=== PATIENT | male | born 1955 | race Caucasian/White ===

== ENCOUNTER 2021-04-13 10:51 | Emergency (ER) | payer OTHER, MEDICARE, MEDICAID ==
[~2021-04-13] VITALS: Ht 188 cm; Wt 107.4 kg
[~2021-04-13 10:51] MED LIST: APIX5TAB3 PO; FINA5TAB3 PO; FLO0.4C PO; FURO-150 PO; LACT1CAP75 PO; LOSA25TA41 PO; METO-395 PO; NITR0.4T51 SL; POTA10TA36 PO
[2021-04-13 12:01] LABS: BASOPHILS # (AUTO) 0.1 X10'3 (0-0.2); BASOPHILS % (AUTO) 0.6 % (0-1); EOSINOPHILS # (AUTO) 0.1 X10'3 (0-0.9); EOSINOPHILS % (AUTO) 0.9 % (0-6); HEMOGLOBIN 12.3 g/dl (14.0-17.9); LYMPHOCYTES # (AUTO) 1.1 X10'3 (1.1-4.8); LYMPHOCYTES % (AUTO) 13.2 % (21-51); MEAN CORPUSCULAR HEMOGLOBIN 27.5 PG (27.0-31.0); MEAN CORPUSCULAR HGB CONC 32.3 g/dL (33.0-36.5); MEAN CORPUSCULAR VOLUME 84.9 FL (78-98); MONOCYTES # (AUTO) 1.2 X10'3 (0-0.9); MONOCYTES % (AUTO) 14.2 % (2-12); NEUTROPHILS % (AUTO) 71.1 % (42-75); PLATELET COUNT 208 X10'3 (140-440); RED BLOOD COUNT 4.47 X10'6 (4.70-6.10); RED CELL DISTRIBUTION WIDTH 17.3 % (11.5-14.5); WHITE BLOOD COUNT 8.5 X10'3 (4.5-11.0)
[2021-04-13 13:02] LABS: ALANINE AMINOTRANSFERASE 49 U/L (12-78); ALBUMIN 3.6 G/DL (3.4-5.0); ALBUMIN/GLOBULIN RATIO 1.1 (1.1-1.5); ALKALINE PHOSPHATASE 68 IU/L (46-116); ANION GAP 9 (8-16); ASPARTATE AMINO TRANSFERASE 23 U/L (10-37); BLOOD UREA NITROGEN 27 MG/DL (7-18); BUN/CREATININE RATIO 14.5 (5.4-32.0); CALCIUM 9.6 MG/DL (8.5-10.1); CHLORIDE 105 MMOL/L (99-107); CREATININE 1.86 MG/DL (0.60-1.10); GLUCOSE 99 MG/DL (70-104); POTASSIUM 3.6 MMOL/L (3.5-5.1); SODIUM 139 MMOL/L (135-145); TOTAL CARBON DIOXIDE 24.7 MMOL/L (24-32); TOTAL PROTEIN 6.9 G/DL (6.4-8.2); eGFR 37 ML/MIN
[2021-04-13] MEDS ORDERED: diltiazem 5mg/ml 5ml inj. IV ONE (13:25)
[2021-04-13 15:57] VITALS: BP 129/97
== END 2021-04-13 15:59 | disposition home or self-care (01) ==
LOC: ER 10:52
DX: I50.9 Heart failure, unspecified (principal); I11.0 Hypertensive heart disease with heart failure; I48.91 Unspecified atrial fibrillation; R00.0 Tachycardia, unspecified; R06.02 Shortness of breath; R53.1 Weakness; R60.0 Localized edema; G89.29 Other chronic pain; Z88.5 Allergy status to narcotic agent; Z88.8 Allergy status to other drugs, medicaments and biological substances; Z79.899 Other long term (current) drug therapy
CPT/HCPCS: 36415; 71045; 80053; 83880; 84484; 85025; 93005; 96374; 99285; J3490

== ENCOUNTER 2021-04-17 03:41 | Emergency (ER) | payer OTHER, MEDICARE, MEDICAID ==
[~2021-04-17] VITALS: Ht 188 cm; Wt 104.5 kg
[2021-04-17 04:41] LABS: BASOPHILS # (AUTO) 0.1 X10'3 (0-0.2); BASOPHILS % (AUTO) 0.7 % (0-1); EOSINOPHILS % (AUTO) 0.4 % (0-6); HEMATOCRIT 35.6 % (42.0-52.0); HEMOGLOBIN 11.4 g/dl (14.0-17.9); LYMPHOCYTES % (AUTO) 11.1 % (21-51); MEAN CORPUSCULAR HEMOGLOBIN 27.6 PG (27.0-31.0); MEAN CORPUSCULAR HGB CONC 32.1 g/dL (33.0-36.5); MEAN PLATELET VOLUME 9.5 FL (7.4-10.4); MONOCYTES % (AUTO) 11.3 % (2-12); NEUTROPHILS # (AUTO) 6.6 X10'3 (1.8-7.7); NEUTROPHILS % (AUTO) 76.5 % (42-75); PLATELET COUNT 194 X10'3 (140-440); RED BLOOD COUNT 4.14 X10'6 (4.70-6.10); RED CELL DISTRIBUTION WIDTH 17.4 % (11.5-14.5); WHITE BLOOD COUNT 8.7 X10'3 (4.5-11.0)
[2021-04-17 04:50] LABS: ALANINE AMINOTRANSFERASE 38 U/L (12-78); ALBUMIN 3.3 G/DL (3.4-5.0); ALBUMIN/GLOBULIN RATIO 1.1 (1.1-1.5); ALKALINE PHOSPHATASE 83 IU/L (46-116); ANION GAP 12 (8-16); ASPARTATE AMINO TRANSFERASE 25 U/L (10-37); BLOOD UREA NITROGEN 28 MG/DL (7-18); BUN/CREATININE RATIO 14.1 (5.4-32.0); CALCIUM 9.6 MG/DL (8.5-10.1); CHLORIDE 105 MMOL/L (99-107); CREATININE 1.99 MG/DL (0.60-1.10); GLUCOSE 107 MG/DL (70-104); POTASSIUM 3.3 MMOL/L (3.5-5.1); SODIUM 140 MMOL/L (135-145); TOTAL CARBON DIOXIDE 22.8 MMOL/L (24-32); TOTAL PROTEIN 6.4 G/DL (6.4-8.2); eGFR 34 ML/MIN
[2021-04-17 05:35] VITALS: BP 121/95
== END 2021-04-17 05:37 | disposition home or self-care (01) ==
LOC: ER 03:42
DX: R06.02 Shortness of breath (principal); F41.9 Anxiety disorder, unspecified; I11.0 Hypertensive heart disease with heart failure; I50.9 Heart failure, unspecified; I48.91 Unspecified atrial fibrillation; I25.2 Old myocardial infarction; G89.29 Other chronic pain; Z88.6 Allergy status to analgesic agent; Z88.8 Allergy status to other drugs, medicaments and biological substances; Z79.899 Other long term (current) drug therapy
CPT/HCPCS: 36415; 71045; 80053; 83735; 83880; 85025; 93005; 99285

== ENCOUNTER 2021-04-19 03:52 | Inpatient (IN) | payer OTHER, MEDICARE, MEDICAID ==
[~2021-04-19] VITALS: Ht 188 cm; Wt 100.0 kg
[2021-04-19 04:34] LABS: BASOPHILS # (AUTO) 0.1 X10'3 (0-0.2); BASOPHILS % (AUTO) 0.7 % (0-1); EOSINOPHILS # (AUTO) 0.1 X10'3 (0-0.9); EOSINOPHILS % (AUTO) 0.8 % (0-6); HEMATOCRIT 37.3 % (42.0-52.0); HEMOGLOBIN 12.2 g/dl (14.0-17.9); LYMPHOCYTES # (AUTO) 1.1 X10'3 (1.1-4.8); LYMPHOCYTES % (AUTO) 13.2 % (21-51); MEAN CORPUSCULAR HGB CONC 32.6 g/dL (33.0-36.5); MEAN CORPUSCULAR VOLUME 85.8 FL (78-98); MEAN PLATELET VOLUME 9.6 FL (7.4-10.4); MONOCYTES # (AUTO) 0.9 X10'3 (0-0.9); MONOCYTES % (AUTO) 11.4 % (2-12); NEUTROPHILS % (AUTO) 73.9 % (42-75); PLATELET COUNT 219 X10'3 (140-440); RED BLOOD COUNT 4.35 X10'6 (4.70-6.10); RED CELL DISTRIBUTION WIDTH 17.2 % (11.5-14.5); WHITE BLOOD COUNT 8.2 X10'3 (4.5-11.0)
[2021-04-19 04:52] LABS: ALANINE AMINOTRANSFERASE 45 U/L (12-78); ALBUMIN 3.4 G/DL (3.4-5.0); ALKALINE PHOSPHATASE 79 IU/L (46-116); ANION GAP 13 (8-16); ASPARTATE AMINO TRANSFERASE 25 U/L (10-37); BILIRUBIN,TOTAL 1.4 MG/DL (0.1-1.0); BLOOD UREA NITROGEN 33 MG/DL (7-18); BUN/CREATININE RATIO 15.6 (5.4-32.0); CALCIUM 9.8 MG/DL (8.5-10.1); CHLORIDE 104 MMOL/L (99-107); CREATININE 2.11 MG/DL (0.60-1.10); GLUCOSE 98 MG/DL (70-104); POTASSIUM 3.5 MMOL/L (3.5-5.1); SODIUM 140 MMOL/L (135-145); TOTAL CARBON DIOXIDE 22.6 MMOL/L (24-32); TOTAL PROTEIN 6.7 G/DL (6.4-8.2); eGFR 32 ML/MIN
[2021-04-19 04:58] LABS: LIPASE 111 U/L (73-393)
[2021-04-19] MEDS ORDERED: diltiazem 5mg/ml 5ml inj. IV ONE ×2 (06:30→07:00)
[2021-04-19] MEDS ORDERED: amiodarone/D5 360MG/200ML BAG 200 ML IV ONE (07:55)
[2021-04-19] MEDS ORDERED: magnesium 4gm in 100ml NS 100 ML IV PRN (08:55)
[2021-04-19] MEDS ORDERED: magnesium Cl slow-release 64mg tablet PO PRN (08:55)
[2021-04-19] MEDS ORDERED: ondansetron/PF 4mg/2ml inj IV PRN (08:55)
[2021-04-19] MEDS ORDERED: mag hydrox/Alum hydrox/simeth 30ml oral suspension PO PRN (08:55)
[2021-04-19] MEDS ORDERED: magnesium hydroxide 30ml (MOM) UD suspension PO PRN (08:55)
[2021-04-19] MEDS ORDERED: bisacodyl 10mg suppository rectal RC PRN (08:55)
[2021-04-19] MEDS ORDERED: magnesium 2GM in 50ml NS 50 ML IV PRN (08:55)
[2021-04-19] MEDS ORDERED: acetaminophen 650mg rectal suppository RC PRN (08:55)
[2021-04-19] MEDS ORDERED: potassium Cl 40MEQ/1/2NS 520ml 520 ML IV PRN ×2 (08:55)
[2021-04-19] MEDS ORDERED: acetaminophen 325mg tablet PO PRN ×2 (08:55)
[2021-04-19] MEDS ORDERED: normal saline 1000ml 1,000 ML IV SCH (08:55)
[2021-04-19] MEDS ORDERED: potassium Cl 20 mEq SR tablet PO PRN ×2 (08:55)
[2021-04-19] MEDS ORDERED: diphenhydrAMINE 25mg capsule PO PRN (08:55)
[2021-04-19 12:35] VITALS: BP 140/74
[2021-04-19 12:44] LABS: CLARITY,URINE CLOUDY (Clear); COLOR,URINE YELLOW (Yellow); GLUCOSE, URINE NEGATIVE (Neg); KETONES,URINE TRACE mg/dl (Neg); LEUKOCYTE ESTERASE ,URINE LARGE (Neg); NITRITES, URINE POSITIVE (Neg); OCCULT BLOOD,URINE SMALL (Neg); PROTEIN,URINE NEGATIVE (Neg); UROBILINOGEN,URINE 0.2 E.U/dL (0.2-1.0)
[2021-04-19 12:54] LABS: UA COLLECTION TYPE NON-SPECIFIED; WBC,URINE 50-100 /HPF (0-4)
[2021-04-19 12:55] LABS: BACTERIA,URINE 4+ /HPF (Neg); RBC,URINE 0-2 /HPF (0-2); SQUAMOUS EPITHELIAL CELL,UR FEW /LPF (FEW); WBC CLUMPS,URINE FEW /HPF (NEGATIVE)
--- NOTE | 2021-04-19 13:00 | NUR ---
Patient in room PCU 3020. I have received report from TIMOTEO ENGLE and had the opportunity to ask questions and assume patient care.
[2021-04-19 15:00] VITALS: BP 129/99
[2021-04-19] MEDS ORDERED: METO-395 PO (15:26)
[2021-04-19] MEDS ORDERED: FURO-150 PO (15:26)
[2021-04-19] MEDS ORDERED: APIX5TAB3 PO (15:26)
[2021-04-19] MEDS ORDERED: NITR0.4T48 SL (15:26)
[2021-04-19] MEDS ORDERED: LOSA25TA96 PO (15:26)
[2021-04-19] MEDS ORDERED: POTA10CA44 PO (15:26)
[2021-04-19] MEDS ORDERED: nitroGLYCERIN 0.4mg SUBLingual tab SL PRN (16:50)
[2021-04-19] MEDS ORDERED: FINA5TAB3 PO (16:57)
[2021-04-19] MEDS ORDERED: FLO0.4C PO (16:57)
[2021-04-19 18:00] VITALS: BP 129/106
--- NOTE | 2021-04-19 18:00 | NUR ---
Patient in room PCU 3020. I have received report from rose and had the opportunity to ask questions and assume patient care.
--- NOTE | 2021-04-19 18:07 | NUR ---
Problems reprioritized. Patient report given, questions answered & plan of care reviewed with RA ENGLE.
--- NOTE | 2021-04-19 18:51 | NUR ---
Problems reprioritized. Patient report given, questions answered & plan of care reviewed with RA ENGLE.
--- NOTE | 2021-04-19 19:30 | NUR ---
Dr Balderrama asked about pt condition and ordered amiodarone per protocol.
[2021-04-19] MEDS: K and/or MAG REPLACEMENT MC SCH (20:00)
[2021-04-19] MEDS ORDERED: amiodarone 150mg/dext, iso-os 100 ML IV ONE (20:25)
[2021-04-19] MEDS: furosemide 20MG tablet PO SCH (21:46)
[2021-04-19] MEDS: tamsulosin 0.4mg capsule PO SCH (21:46)
[2021-04-19] MEDS: apixaban 5mg tablet PO SCH (21:46)
[2021-04-19] MEDS: amiodarone/D5 360MG/200ML BAG 200 ML IV SCH (21:56)
[2021-04-19 22:00] VITALS: BP 127/89
[2021-04-20] MEDS: ondansetron 4mg rapidly disintigrating tab PO PRN ×2 (00:19→10:05)
[2021-04-20 02:00] VITALS: BP 117/91
[2021-04-20] MEDS: amiodarone/D5 360MG/200ML BAG 200 ML IV SCH ×2 (04:19→08:33)
[2021-04-20 06:00] VITALS: BP 109/86
--- NOTE | 2021-04-20 06:17 | NUR ---
Patient in room PCU 3020. I have received report from ONIEL Harman and had the opportunity to ask questions and assume patient care.
--- NOTE | 2021-04-20 06:17 | NUR ---
Problems reprioritized. Patient report given, questions answered & plan of care reviewed with CÉSAR.
[2021-04-20 06:21] LABS: ALANINE AMINOTRANSFERASE 37 U/L (12-78); ALKALINE PHOSPHATASE 69 IU/L (46-116); ANION GAP 7 (8-16); ASPARTATE AMINO TRANSFERASE 18 U/L (10-37); BILIRUBIN,TOTAL 0.8 MG/DL (0.1-1.0); BLOOD UREA NITROGEN 30 MG/DL (7-18); BUN/CREATININE RATIO 14.6 (5.4-32.0); CALCIUM 9.5 MG/DL (8.5-10.1); CHLORIDE 105 MMOL/L (99-107); CREATININE 2.06 MG/DL (0.60-1.10); GLUCOSE 102 MG/DL (70-104); POTASSIUM 3.5 MMOL/L (3.5-5.1); SODIUM 139 MMOL/L (135-145); TOTAL CARBON DIOXIDE 26.8 MMOL/L (24-32); eGFR 32 ML/MIN
[2021-04-20 06:35] LABS: BASOPHILS % (AUTO) 0.6 % (0-1); EOSINOPHILS # (AUTO) 0.1 X10'3 (0-0.9); EOSINOPHILS % (AUTO) 1.2 % (0-6); HEMOGLOBIN 11.3 g/dl (14.0-17.9); LYMPHOCYTES # (AUTO) 1.3 X10'3 (1.1-4.8); LYMPHOCYTES % (AUTO) 16.4 % (21-51); MEAN CORPUSCULAR HEMOGLOBIN 27.6 PG (27.0-31.0); MEAN CORPUSCULAR HGB CONC 32.1 g/dL (33.0-36.5); MEAN PLATELET VOLUME 9.7 FL (7.4-10.4); MONOCYTES % (AUTO) 12.7 % (2-12); NEUTROPHILS # (AUTO) 5.3 X10'3 (1.8-7.7); NEUTROPHILS % (AUTO) 69.1 % (42-75); PLATELET COUNT 215 X10'3 (140-440); RED BLOOD COUNT 4.07 X10'6 (4.70-6.10); RED CELL DISTRIBUTION WIDTH 17.4 % (11.5-14.5); WHITE BLOOD COUNT 7.7 X10'3 (4.5-11.0)
[2021-04-20] MEDS ORDERED: losartan 25mg tablet PO SCH (08:00)
[2021-04-20] MEDS ORDERED: metoprolol succinate 25mg (24-HOUR) SR. Tablet PO SCH (08:00)
[2021-04-20] MEDS: K and/or MAG REPLACEMENT MC SCH (08:00)
[2021-04-20] MEDS ORDERED: finasteride 5mg tablet PO SCH (08:00)
[2021-04-20] MEDS: furosemide 20MG tablet PO SCH (08:21)
[2021-04-20 08:22] VITALS: BP_SYST 109
[2021-04-20] MEDS: apixaban 5mg tablet PO SCH (08:22)
[2021-04-20] MEDS: tamsulosin 0.4mg capsule PO SCH (08:22)
[2021-04-20] MEDS ORDERED: AMIO200T67 PO (10:05)
[2021-04-20] MEDS ORDERED: METO-395 PO (10:05)
--- NOTE | 2021-04-20 11:01 | NUR ---
Patient stable for discharge per MD orders. PIV discontinued intact. Telemetry monitoring equipment removed and returned to telemetry office. All belongings collected and sent with patient. Life Vest and accessories, including power pack, sent with patient. All discharge instructions reviewed with patient, who was given the opportunity to ask questions. All questions answered with patient expressing good understanding of discharge requirements. 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
[2021-04-20] MEDS ORDERED: amiodarone 200mg tablet PO SCH (20:00)
[2021-04-21] MEDS ORDERED: metoprolol succinate 25mg (24-HOUR) SR. Tablet PO SCH (08:00)
[2021-04-22] MEDS ORDERED: CEPH250T PO (15:14)
== END 2021-04-20 10:53 | disposition home health service (06) | DRG 309 ==
LOC: ER 03:53 → ED HOLD 08:53 → PCU 3S 12:23
PROVIDERS: ADMIT Family Medicine; ATTEND Family Medicine
DX: I48.0 Paroxysmal atrial fibrillation (principal); N17.9 Acute kidney failure, unspecified; I13.0 Hypertensive heart and chronic kidney disease with heart failure and stage 1 through stage 4 chronic kidney disease, or unspecified chronic kidney disease; I50.20 Unspecified systolic (congestive) heart failure; I42.9 Cardiomyopathy, unspecified; F12.90 Cannabis use, unspecified, uncomplicated; F32.9 Major depressive disorder, single episode, unspecified; F41.1 Generalized anxiety disorder; F43.10 Post-traumatic stress disorder, unspecified; G47.00 Insomnia, unspecified; G89.29 Other chronic pain; M54.9 Dorsalgia, unspecified; N18.9 Chronic kidney disease, unspecified; N40.0 Benign prostatic hyperplasia without lower urinary tract symptoms; Z79.01 Long term (current) use of anticoagulants; Z79.899 Other long term (current) drug therapy; Z80.8 Family history of malignant neoplasm of other organs or systems; I25.2 Old myocardial infarction; Z86.2 Personal history of diseases of the blood and blood-forming organs and certain disorders involving the immune mechanism; Z87.891 Personal history of nicotine dependence; Z88.5 Allergy status to narcotic agent; Z88.8 Allergy status to other drugs, medicaments and biological substances
CPT/HCPCS: 36415; 71045; 80053; 81001; 83690; 83735; 83880; 84100; 84484; 85025; 87077; 87081; 87088; 87186; 93005; 96374; 96375; 96376; 99285; G0378; J3490; J7030

== ENCOUNTER 2021-04-28 08:51 | Emergency (ER) | payer OTHER, MEDICARE, MEDICAID ==
[~2021-04-28] VITALS: Ht 188 cm; Wt 92.7 kg
[~2021-04-28 08:51] MED LIST changes: +AMIO200T67 PO; +CEPH250T PO; -LACT1CAP75 PO; -LOSA25TA41 PO; +LOSA25TA96 PO; +NITR0.4T48 SL; -NITR0.4T51 SL; +POTA10CA44 PO; -POTA10TA36 PO
[2021-04-28 09:57] LABS: BASOPHILS % (AUTO) 0.5 % (0-1); EOSINOPHILS # (AUTO) 0.1 X10'3 (0-0.9); EOSINOPHILS % (AUTO) 0.8 % (0-6); HEMATOCRIT 35.2 % (42.0-52.0); HEMOGLOBIN 11.4 g/dl (14.0-17.9); LYMPHOCYTES # (AUTO) 0.8 X10'3 (1.1-4.8); LYMPHOCYTES % (AUTO) 10.9 % (21-51); MEAN CORPUSCULAR HEMOGLOBIN 27.6 PG (27.0-31.0); MEAN CORPUSCULAR HGB CONC 32.4 g/dL (33.0-36.5); MEAN CORPUSCULAR VOLUME 85.3 FL (78-98); MONOCYTES # (AUTO) 0.9 X10'3 (0-0.9); MONOCYTES % (AUTO) 12.2 % (2-12); NEUTROPHILS # (AUTO) 5.6 X10'3 (1.8-7.7); NEUTROPHILS % (AUTO) 75.6 % (42-75); PLATELET COUNT 261 X10'3 (140-440); RED BLOOD COUNT 4.13 X10'6 (4.70-6.10); RED CELL DISTRIBUTION WIDTH 16.8 % (11.5-14.5); WHITE BLOOD COUNT 7.4 X10'3 (4.5-11.0)
[2021-04-28 10:12] LABS: ALANINE AMINOTRANSFERASE 35 U/L (12-78); ALBUMIN 3.2 G/DL (3.4-5.0); ALBUMIN/GLOBULIN RATIO 1.1 (1.1-1.5); ALKALINE PHOSPHATASE 61 IU/L (46-116); ANION GAP 9 (8-16); ASPARTATE AMINO TRANSFERASE 19 U/L (10-37); BILIRUBIN,TOTAL 1.1 MG/DL (0.1-1.0); BLOOD UREA NITROGEN 28 MG/DL (7-18); BUN/CREATININE RATIO 13.7 (5.4-32.0); CALCIUM 9.3 MG/DL (8.5-10.1); CHLORIDE 102 MMOL/L (99-107); CREATININE 2.05 MG/DL (0.60-1.10); GLUCOSE 96 MG/DL (70-104); POTASSIUM 3.5 MMOL/L (3.5-5.1); SODIUM 136 MMOL/L (135-145); TOTAL CARBON DIOXIDE 25.1 MMOL/L (24-32); TOTAL PROTEIN 6.1 G/DL (6.4-8.2); eGFR 33 ML/MIN
[2021-04-28 12:07] VITALS: BP 110/84
== END 2021-04-28 12:09 | disposition home or self-care (01) ==
LOC: ER 08:52
DX: I50.9 Heart failure, unspecified (principal); G47.00 Insomnia, unspecified; I48.91 Unspecified atrial fibrillation; I10 Essential (primary) hypertension; I25.2 Old myocardial infarction; G89.29 Other chronic pain; Z88.5 Allergy status to narcotic agent; Z88.8 Allergy status to other drugs, medicaments and biological substances; Z79.2 Long term (current) use of antibiotics; Z79.899 Other long term (current) drug therapy
CPT/HCPCS: 36415; 71045; 80053; 83880; 84484; 85025; 93005; 99285

== ENCOUNTER 2021-06-28 12:05 | Day surgery (SDC) | payer OTHER ==
[2021-06-28] VITALS (9 sets, daily range): BP systolic 110–132; BP diastolic 75–95
[~2021-06-28] VITALS: Ht 188 cm; Wt 114.0 kg
[2021-06-28] MEDS ORDERED: MIDAZolam 1mg/ml 10ml vial IV ONE (12:35)
[2021-06-28] MEDS ORDERED: normal saline 1000ml 1,000 ML IV SCH (12:35)
[2021-06-28] MEDS ORDERED: fentaNYL/PF 50MCG/1 ML 2ML syringe IV ONE (12:35)
[2021-06-28] MEDS ORDERED: AMIO200T61 PO (13:05)
[2021-06-28] MEDS ORDERED: METO-539 PO (13:08)
[2021-06-28] MEDS ORDERED: MELA5TAB12 PO (13:08)
[2021-06-28] MEDS ORDERED: ROSU5TAB12 PO (13:09)
[2021-06-28] MEDS ORDERED: diphenhydrAMINE 25mg capsule PO PRN (13:15)
[2021-06-28] MEDS ORDERED: normal saline 1,000 ML IV SCH (13:15)
[2021-06-28] MEDS ORDERED: LORazepam 0.5 MG tablet PO PRN (13:15)
[2021-06-28] MEDS ORDERED: fentaNYL/PF 50MCG/1 ML 2ML syringe ONE (13:25)
[2021-06-28] MEDS ORDERED: midazolam 1 mg/ML 2ml injection ONE (13:25)
[2021-06-28] MEDS ORDERED: LIDOcaine 1% (10mg/ml)w/preservative injection 20ml MDV ONE (13:25)
[2021-06-28] MEDS ORDERED: verapamil 2.5 mg/ml inj IV ONE (13:25)
[2021-06-28] MEDS ORDERED: heparin 1,000unit/ml 10ml vial 10 ML ONE (13:26)
[2021-06-28] MEDS ORDERED: iohexol 350MG/ML 100ml bottle IV ONE (13:26)
[2021-06-28] MEDS ORDERED: nitroGLYCERIN-Tridil 50MG/D5W 250 ML IV ONE (13:26)
[2021-06-28 14:10] LABS: BASOPHILS # (AUTO) 0.1 X10'3 (0-0.2); BASOPHILS % (AUTO) 0.8 % (0-1); EOSINOPHILS % (AUTO) 0.5 % (0-6); HEMATOCRIT 36.2 % (42.0-52.0); HEMOGLOBIN 11.2 g/dl (14.0-17.9); LYMPHOCYTES # (AUTO) 1.2 X10'3 (1.1-4.8); LYMPHOCYTES % (AUTO) 17.5 % (21-51); MEAN CORPUSCULAR HEMOGLOBIN 25.6 PG (27.0-31.0); MEAN CORPUSCULAR HGB CONC 30.9 g/dL (33.0-36.5); MEAN CORPUSCULAR VOLUME 82.7 FL (78-98); MONOCYTES # (AUTO) 0.7 X10'3 (0-0.9); NEUTROPHILS # (AUTO) 4.7 X10'3 (1.8-7.7); NEUTROPHILS % (AUTO) 71.2 % (42-75); PLATELET COUNT 354 X10'3 (140-440); RED BLOOD COUNT 4.38 X10'6 (4.70-6.10); RED CELL DISTRIBUTION WIDTH 20.1 % (11.5-14.5); WHITE BLOOD COUNT 6.6 X10'3 (4.5-11.0)
[2021-06-28 14:18] LABS: ALBUMIN 3.4 G/DL (3.4-5.0); ANION GAP 10 (8-16); BLOOD UREA NITROGEN 20 MG/DL (7-18); BUN/CREATININE RATIO 10.2 (5.4-32.0); CALCIUM 9.9 MG/DL (8.5-10.1); CHLORIDE 102 MMOL/L (99-107); CREATININE 1.96 MG/DL (0.60-1.10); GLUCOSE 99 MG/DL (70-104); POTASSIUM 3.5 MMOL/L (3.5-5.1); SODIUM 141 MMOL/L (135-145); TOTAL CARBON DIOXIDE 29.1 MMOL/L (24-32); eGFR 34 ML/MIN
[2021-06-28 15:00] LABS: ANISOCYTOSIS 3+; BURR CELLS FEW; ELLIPTOCYTES FEW; PLATELET ESTIMATE NORMAL
[2021-06-28 15:01] LABS: ACANTHOCYTES FEW; MICROCYTOSIS 1+; TEAR DROP CELLS FEW
[2021-06-28] MEDS ORDERED: ondansetron/PF 4mg/2ml inj IV PRN (15:55)
[2021-06-28] MEDS ORDERED: proCHLORperazine 10 MG/2 ml inj IV PRN (15:55)
[2021-06-28] MEDS ORDERED: OXAZEpam 15mg capsule PO PRN (15:55)
[2021-06-28] MEDS ORDERED: HYDROcodone/acetaminophen 5mg/325mg tablet PO PRN (15:55)
[2021-06-28] MEDS ORDERED: HYDROcodone/acetaminophen 10/325mg tab PO PRN (15:55)
== END 2021-06-28 18:40 | disposition home or self-care (01) ==
LOC: SSTAY O 12:05
PROVIDERS: ATTEND Internal Medicine Interventional Cardiology
DX: R06.02 Shortness of breath (principal); I25.10 Atherosclerotic heart disease of native coronary artery without angina pectoris; I42.0 Dilated cardiomyopathy; I11.0 Hypertensive heart disease with heart failure; I50.9 Heart failure, unspecified; I48.0 Paroxysmal atrial fibrillation; Z88.8 Allergy status to other drugs, medicaments and biological substances; Z88.5 Allergy status to narcotic agent; Z79.899 Other long term (current) drug therapy; Z79.01 Long term (current) use of anticoagulants; Z87.891 Personal history of nicotine dependence
CPT/HCPCS: 36415; 80048; 85025; 85610; 93005; 93458; 99152; C1769; C1894; J1644; J2001; J2250; J3010; Q9967; 85008; A4620; A5120; A6258; J3490